=== PATIENT | female | born 1985 | race Caucasian/White ===

== ENCOUNTER → 2022-01-13 18:01 | Outpatient (CLI) | payer BC, SELFPAY ==
--- NOTE | 2022-01-13 18:02 | DI.RAD.S_ITS ---
PROCEDURE: XR WRIST RT MIN 3V INDICATIONS: painful and swollen TECHNIQUE: Four views of the wrist were acquired. COMPARISON: None. FINDINGS: Bones: No fractures or dislocations. No suspicious bony lesions. Scaphoid view: Scaphoid is intact. Soft tissues: No suspicious soft tissue calcifications. IMPRESSION: Normal exam. Dictated by: Lexx Bettencourt M.D. on 01/13/2022 at 18:28 Approved by: Lexx Bettencourt M.D. on 01/13/2022 at 18:29
== END ==
PROVIDERS: Referring Provider Nurse Practitioner Family; Visit Provider Nurse Practitioner Family
DX: M25.531 Pain in right wrist (principal)
CPT/HCPCS: 73110

== ENCOUNTER → 2022-03-20 11:15 | Outpatient (CLI) | payer BC, SELFPAY | PROVIDERS: Visit Provider Nurse Practitioner Family | DX: R10.9 Unspecified abdominal pain (principal) | CPT/HCPCS: 87086 ==

== ENCOUNTER → 2022-03-24 08:15 | Outpatient (CLI) | payer BC, SELFPAY ==
--- NOTE | 2022-03-24 08:16 | DI.US.S_ITS ---
PROCEDURE: US ABDOMEN LIMITED INDICATIONS: RIGHT UPPER QUADRANT PAIN TECHNIQUE: Real-time focused scanning was performed of the abdomen, with image documentation. COMPARISON: None. FINDINGS: The liver measures 14.8 cm with overall normal echotexture. Cholecystectomy. CBD measures up to 7 mm, within normal limits post cholecystectomy. Head and body of the pancreas were visualized and within normal limits. No pathologic free fluid in the upper abdomen. IMPRESSION: Status post cholecystectomy, prominent CBD measures within normal limits in the absence of the gallbladder. Overall unremarkable sonographic appearance of the liver. Dictated by: Gilbert Jerez M.D. on 03/24/2022 at 9:03 Approved by: Gilbert Jerez M.D. on 03/24/2022 at 9:05
== END ==
PROVIDERS: Referring Provider Nurse Practitioner Family; Visit Provider Nurse Practitioner Family
DX: R10.11 Right upper quadrant pain (principal); Z90.49 Acquired absence of other specified parts of digestive tract
CPT/HCPCS: 76705

== ENCOUNTER → 2022-04-29 16:27 | Outpatient (CLI) | payer BC, SELFPAY ==
[2022-04-29 17:45] LABS: Add Manual Diff / Slide Review NO; Basophils Absolute Auto 0 /uL (0-100); Basophils Percent Auto 0.3 % (0-2); Eosinophils Absolute Auto 100 /uL (0-450); Eosinophils Percent Auto 1.4 % (2-4); Hematocrit 34.3 % (36-46); Lymphocytes Absolute Auto 2000 /uL (1100-4500); Lymphocytes Percent Auto 37.2 % (25-40); Mean Corpuscular HGB Conc 35.1 % (30-36); Mean Corpuscular Hemoglobin 31.7 PG (26-34); Mean Corpuscular Volume 90.1 fL (80-100); Monocytes Absolute Auto 500 /uL (0-900); Monocytes Percent Auto 8.7 % (3-14); Neutrophils Absolute Auto 2800 /uL (1500-7000); Neutrophils Percent Auto 52.4 % (50-75); Platelet Count 302 X10^3/uL (150-400); Red Cell Distribution Width 12.1 % (11.6-14.8); White Blood Cell Count 5.3 X10^3/uL (4.5-11.0)
[2022-04-29 17:49] LABS: Appearance Urine UA CLEAR; Bilirubin Urine UA NEGATIVE (NEGATIVE); Color Urine UA YELLOW; Glucose Urine UA NEGATIVE (Negative); Ketones Urine UA NEGATIVE (NEGATIVE); Leukocyte Esterase Urine UA 2+ (NEGATIVE); Nitrite Urine UA NEGATIVE (Negative); Occult Blood Urine UA NEGATIVE (Negative); Protein Urine UA NEGATIVE (Negative); Urobilinogen Urine UA 0.2 E.U./dL (0.2)
[2022-04-29 17:58] LABS: pH Urine UA 7.5 (4.5-8.0)
[2022-04-29 18:02] LABS: Alanine Aminotransferase 18 IU/L (<35); Albumin 4.3 g/dL (3.5-5.0); Albumin Globulin Ratio 1.4 (1.0-2.8); Alkaline Phosphatase 58 U/L (38-126); Aspartate Aminotransferase 25 IU/L (14-36); BUN Creatinine Ratio 21.7 (6-22); Bilirubin Total 0.3 mg/dL (0.2-1.3); Blood Urea Nitrogen 18 mg/dL (7-17); Calcium 9.1 mg/dL (8.4-10.2); Carbon Dioxide 29 mmol/L (22-32); Chloride 103 mmol/L (98-107); Cholesterol 166 mg/dL (140-199); Estimated Glomerular Filt Rate > 60 mL/min (>60); Glucose 90 mg/dL (70-100); HDL Cholesterol 37 mg/dL (40-60); HEMOLYSIS < 15 (0-50); LDL Cholesterol Calculated 106 mg/dL (<100); Sodium 140 mmol/L (137-145); Total Protein 7.3 g/dL (6.3-8.2); Triglycerides 116 mg/dL (35-150)
[2022-04-29 18:03] LABS: Bacteria Urine Occasional (0-1); Culture Indicated Urine Specimen Cultured; RBC Urine 0-1/HPF (0-5/HPF); Squamous Epithelial Cell Urine 1-5 /HPF (0-5/HPF); Trichomonas Urine 1-5/HPF (None Seen); WBC Urine 5-10/HPF (0-5/HPF)
[2022-04-29 18:31] LABS: TSH w/ Reflex to FT4 1.49 uIU/mL (0.47-4.68)
== END ==
PROVIDERS: PCP Pediatrics; Referring Provider Pediatrics; Visit Provider Pediatrics
DX: Z13.9 Encounter for screening, unspecified (principal)
CPT/HCPCS: 36415; 80053; 80061; 81003; 81015; 84443; 85025; 87086

== ENCOUNTER 2022-10-09 10:30 | Outpatient (RCR) | payer BC, SELFPAY ==
--- NOTE | 2022-08-12 15:15 | PT.OIE ---
Current Diagnoses Low back pain, unspecified (08/12/22) Other specified disorders of muscle (08/12/22) Stress incontinence (female) (male) (08/12/22) Past Medical History (Last Reviewed 07/17/22 @ 13:35 by Angel Red MD) ADHD Allergies Anemia (~1999) Asthma Chicken pox (~1987) Chronic back pain Chronic insomnia Eczema (~2019) Fatigue Fractures History of COVID-19 Ovarian cyst (~2003) Past Surgical History (Last Reviewed 07/17/22 @ 13:35 by Angel Red MD) Anesthesia H/O left knee surgery (~2007) H/O left wrist surgery (~2004) History of ankle surgery (~1995) History of cholecystectomy (~2011) History of shoulder surgery (~2015) History of tonsillectomy (~1988) Vocal cord polyp (~2003) Visit Care Team Role Provider Type Az Wagner MD Attending Provider Physician Family Provider Primary Care Provider Referring Provider Specialty: Internal Medicine Pediatrics Address: [address] [place] [address], [facility] Phone: Fax: Email: [email or web address] Physical Therapy Initial Evaluation PT-OP-A Visit Information Start: 08/12/22 12:13 Freq: Status: Active Protocol: Document 08/12/22 14:30 [facility] (Rec: 08/12/22 18:27 [facility] [id number]) Out-Patient Physical Therapy Visit Information Visit Information Visit Type Initial Evaluation Visit Start Time 14:30 Visit Stop Time 15:15 Total Visit Minutes 45 Visit Number 1 Evaluation Information Evaluation Date 08/12/22 PT-OP-B Current Condition Start: 08/12/22 12:13 Freq: Status: Active Protocol: Document 08/12/22 14:30 [facility] (Rec: 08/12/22 15:04 [facility] [id number]) Current Condition History of Current Condition Onset Date following her and delivery 3 years ago Current Complaints pelvic floor weakness, coccyx pain and pain across the lower back and SI History of Current Condition History of vaginal delivery 3 years and she began having tailbone pain afterwards and it never went away. SHe did have strain counter strain and fascial release and this did hep some. Pain is not constant but more if she is in a seated position or sitting in a soft space. She is hypermobile and has had more issues with her SI. Her pain is sharp and intense and then goes away. SHe doesn't feel like she has as much control as she used to . Treatment Goals Patient/Caregiver Goals pts goals are to include core strength and stability of the pelvic floor, reduce pain in the tailbone region and low back Prior Functional Status Baseline Function- ADL's Independent Baseline Function- Mobility Independent Baseline Function- Other prior to and delivery pt noted no c/o pain or pelvic floor weakness Current Functional Impairments (Reported) Functional Limitations- Recreation/ tailbone pain can limit Hobbies activities Functional Limitations- Other pt experiences urinary leakage with cough or sneeze PT-OP-C Subjective Start: 08/12/22 12:13 Freq: Status: Active Protocol: Document 08/12/22 14:30 [facility] (Rec: 08/13/22 13:44 [facility] [id number]) OP-PT Pain Assessment Pain Assessment Grid Paper Pain Assessment Grid Completed Yes Location low back and SI joints B Intensity 4 Scale Used Numeric (0 - 10) Description- Other pain ranges from 1-4 Frequency Frequent coccyx bone Pain Location Details coccyx bone Intensity 5 Scale Used Numeric (0 - 10) Description Sharp,Stabbing Description- Other pain ranges 0-5 Frequency Intermittent PT-OP-F Manual Assessment Start: 08/12/22 12:13 Freq: Status: Active Protocol: Document 08/12/22 14:30 [facility] (Rec: 08/13/22 13:44 [facility] [id number]) Manual Assessments Soft Tissue Assessment Soft Tissue Mobility Assessment tightness of the lumbar parapsinals and pelvis is held in a anterior pelvic tilt hamstring tightness bilaterally left side quad and hip flexor tightness, with prone knee flexion pt has a increase in lumbar extension with prone quad stretch and experiences increase LBP Joint Mobility Assessment Joint Mobility Assessment + ASLR test on the left for SI instability PT-OP-I Pelvic Floor Start: 08/13/22 13:44 Freq: Status: Active Protocol: Document 08/12/22 14:30 [facility] (Rec: 08/13/22 13:47 [facility] [id number]) Pelvic Floor Assessment Urine Pelvic Floor Surgery No Urinary Symptoms Urge Sensation Leakage Size Small Leakage Cause Cough,Exercise,Urge Pelvic Clock Pelvic Clock 12-3 Atrophy Pelvic Clock 3-6 Guarding,Tenderness Pelvic Clock 6-9 Guarding,Tenderness Pelvic Clock 9-12 Guarding,Tenderness Contraction Ability Voluntary Contraction Moderate Voluntary Relaxation Moderate Manual Muscle Testing Left 3 Manual Muscle Testing Right 3 Manual Muscle Testing Anterior 3 Manual Muscle Testing Posterior 3 Muscle Endurance (Seconds) 4 Comments Pelvic Floor Comments Durga is in a guarded state with her pelvic floor muscles, she has difficulty zane as well as relaxing her pelvic floor due to her pelvic floor muscles being guarded and in spasm PT-OP-J Posture/Palpation/Skin Start: 08/12/22 12:13 Freq: Status: Active Protocol: Document 08/12/22 14:30 [facility] (Rec: 08/13/22 13:44 [facility] [id number]) Posture Evaluation Comments Posture Comments pt stands in a anterior pelvic tilt with shortening of the lumbar paraspinal muscles PT-OP-K Range of Motion Start: 08/12/22 12:13 Freq: Status: Active Protocol: Document 08/12/22 14:30 [facility] (Rec: 08/13/22 13:49 [facility] [id number]) Lumbar Spine Range of Motion Lumbar Spine Active Testing Position quadruped Flexion 40 ROM Limitations Soft Tissue Tightness,Pain Comments pt has very limited lumbar flexion as her spine is held into extension and her paraspinal muscles are guarded and tight PT-OP-M Strength Start: 08/12/22 12:13 Freq: Status: Active Protocol: Document 08/12/22 14:30 [facility] (Rec: 08/13/22 13:49 [facility] [id number]) Trunk Strength Trunk Manual Muscle Testing Testing Position Supine Flexion 3 Fair Core Stabilization poor TA activation without upper abdominal substitution PT-OP-Q Treatments Start: 08/12/22 12:13 Freq: Status: Active Protocol: Document 08/12/22 14:30 [facility] (Rec: 08/13/22 13:50 [facility] [id number]) Therapeutic Exercises Other Exercises iliopsoas stretch in riri test position Side bilateral Reps/Minutes hold 1-2 min Comments left side is significantly tighter than the right tyson pose Reps/Minutes hold 1-2 min quadruped cat cow Reps/Minutes x 20 reps quadruped TA Reps/Minutes x 10 reps holding up to 10 second holds PT-OP-T Assessment and Plan Start: 08/12/22 12:13 Freq: Status: Active Protocol: Document 08/12/22 14:30 [facility] (Rec: 08/13/22 13:44 [facility] [id number]) Physical Therapy Assessment Rehab Potential Rehabilitation Potential Excellent Evaluation Complexity Number of Personal Factors/Comorbidities 0 Number of Body Systems Impaired 1-2 Clinical Presentation at Evaluation Stable Impairments Impairments Activity Tolerance,Functional Mobility,Pain,Posture,ROM,Soft Tissue Mobility,Strength,Tone Other Impairments urinary incontinence Goals 4 Impairment decreased lumbar spine flexion with lumbar paraspinal guarding and tightness Short Term Goal (STG) Durga is educated on a home exercise program to release the guarded and tight lumbar paraspinals and improve lumbar ROM into flexion helping to reduce LBP STG Duration 6 weeks 3 Impairment poor strength and endurance of the pelvic floor Short Term Goal (STG) Durga is able to sustain a pelvic floor contraction in supine x 5 seconds with good relaxation following STG Duration 6 weeks [employer] Goal (LTG) Durga is able to sustain a pelvic floor contraction in supine x 10 seconds with full relaxation following LTG Duration 12 weeks 2 Impairment pelvic floor guarding and tightness, inability to voluntarily relax the levator ani Air[employer] Goal (LTG) Durga is able to relax her pelvic floor to baseline on EMG biofeedback LTG Duration 12 weeks 1 Impairment low back pain rated 1-4/10 and coccyx pain rated 0-5/10 Retirement Goal (LTG) Durga reports a overall reduction in pain levels with both her coccyx bone as well as her low back LTG Duration 12 weeks Assessment Summary Assessment Durga is a 37 year old female referred to PT with pelvic floor weakness and coccyx/low back pain. Durga reports her pain began approximately 3 years ago following her and delivery. She reports feeling weak in her pelvic floor and doesn't feel she has as much support as she did pre . She reports urinary leakage with strong cough or sneeze. The tailbone pain she experiences is intermittent but can be very sharp. She has low back pain that is more constant in nature and is described as 1-4 /10 on the pain scale. With evaluation today Durga is restricted in lumbar spine ROM into flexion and presents with guarding and muscle spasm of her paraspinals. Her pelvis is in a anteriorly rotated position at rest and it is not comfortable for her to lay flat in supine because of this. She is tight in her hip flexors bilaterally with the left side much more so than the right. There is a + ASLR test on the left with unlocking of the SI joint She is weak in her core musculature. With pelvic floor assessment she is guarded and tight in her levator ani on the lateral payne as well as the posterior wall. She has difficulty relaxing her pelvic floor on her own. She is a good candidate for EMG biofeedback with a emphasis on down training for the pelvic floor first and then building the strength back up. Her guarding in her levator ani is most likely contributing to her tailbone pain. I started gentle abdominal bracing exercises with her today and then she was shown stretches for her low back to emphasize flexion and to release her tight hip flexors. She is a good candidate for PT Physical Therapy Plan Frequency and Duration Frequency of Treatment 2x/Week Duration of treatment (weeks) 12 Plan of Care Start Date 08/12/22 Plan of Care End Date 11/04/22 Therapeutic Interventions Therapeutic Interventions Home Exercise Program, Neuromuscular Re-education, Patient/Caregiver Education, Self-Care/Home Management,Soft Tissue Mobilization, Therapeutic Exercises Modalities Biofeedback,Electric Stimulation Next Visit Focus/Plan Next Note Type Treatment Note Next Visit Plan Begin EMG biofeedback for neuromuscular awareness of the levator ani, begin MFR release techniques for the coccygeus to help reduce muscle tone and assist with coccyx pain.
--- NOTE | 2022-08-26 18:23 | PT.OTN ---
Current Diagnoses Low back pain, unspecified (08/26/22) Other specified disorders of muscle (08/26/22) Stress incontinence (female) (male) (08/26/22) Physical Therapy Treatment Note PT-OP-A Visit Information Start: 08/12/22 12:13 Freq: Status: Active Protocol: Document 08/26/22 14:30 [facility] (Rec: 08/26/22 15:19 [facility] [id number]) Out-Patient Physical Therapy Visit Information Visit Information Visit Type Treatment Note Visit Start Time 14:30 Visit Stop Time 15:15 Total Visit Minutes 45 Visit Number 2 PT-OP-B Current Condition Start: 08/12/22 12:13 Freq: Status: Active Protocol: Document 08/12/22 14:30 [facility] (Rec: 08/12/22 15:04 [facility] [id number]) Current Condition History of Current Condition Onset Date following her and delivery 3 years ago Current Complaints pelvic floor weakness, coccyx pain and pain across the lower back and SI History of Current Condition History of vaginal delivery 3 years and she began having tailbone pain afterwards and it never went away. SHe did have strain counter strain and fascial relase and this did hep some. Pain is not constant but more if she is in a seated position or sitting in a soft space. She is hypermoblie and has had more issues with her SI. Her pain is sharp and intense and then goes away. SHe doesn't feel like she has as much contral as she used to . Treatment Goals Patient/Caregiver Goals pts goals are to include core strength and stability of the pelvic floor, reduce pain in the tailbone region and low back Prior Functional Status Baseline Function- ADL's Independent Baseline Function- Mobility Independent Baseline Function- Other prior to and delivery pt noted no c/o pain or pelvic floor weakness Current Functional Impairments (Reported) Functional Limitations- Recreation/ tailbone pain can limit Hobbies activities Functional Limitations- Other pt experiences urinary leakage with cough or sneeze PT-OP-C Subjective Start: 08/12/22 12:13 Freq: Status: Active Protocol: Document 08/26/22 14:30 [facility] (Rec: 08/26/22 15:19 [facility] [id number]) OP-PT Subjective Patient Comments Patient Comments pt notes if she stretches and then uses the miracle ball and then stretches again she does better with activating her pelvic floor, she had a strain counter strain appot last week and since then she hasn't noticed as much of her tailbone pain. Patient Reported Progress Improving PT-OP-F Manual Assessment Start: 08/12/22 12:13 Freq: Status: Active Protocol: Document 08/12/22 14:30 [facility] (Rec: 08/13/22 13:44 [facility] [id number]) Manual Assessments Soft Tissue Assessment Soft Tissue Mobility Assessment tightness of the lumbar parapsinals and pelvis is held in a anterior pelvic tilt hamstring tightness bilaterally left side quad and hip flexor tightness, with prone knee flexion pt has a increase in lumbar extension with prone quad stretch and experiences increase LBP Joint Mobility Assessment Joint Mobility Assessment + ASLR test on the left for SI instability PT-OP-I Pelvic Floor Start: 08/13/22 13:44 Freq: Status: Active Protocol: Document 08/12/22 14:30 [facility] (Rec: 08/13/22 13:47 [facility] [id number]) Pelvic Floor Assessment Urine Pelvic Floor Surgery No Urinary Symptoms Urge Sensation Leakage Size Small Leakage Cause Cough,Exercise,Urge Pelvic Clock Pelvic Clock 12-3 Atrophy Pelvic Clock 3-6 Guarding,Tenderness Pelvic Clock 6-9 Guarding,Tenderness Pelvic Clock 9-12 Guarding,Tenderness Contraction Ability Voluntary Contraction Moderate Voluntary Relaxation Moderate Manual Muscle Testing Left 3 Manual Muscle Testing Right 3 Manual Muscle Testing Anterior 3 Manual Muscle Testing Posterior 3 Muscle Endurance (Seconds) 4 Comments Pelvic Floor Comments Durga is in a guarded state with her pelvic floor muscles, she has difficulty zane as well as relaxing her pelvic floor due to her pelvic floor muscles being guarded and in spasm PT-OP-J Posture/Palpation/Skin Start: 08/12/22 12:13 Freq: Status: Active Protocol: Document 08/12/22 14:30 [facility] (Rec: 08/13/22 13:44 [facility] [id number]) Posture Evaluation Comments Posture Comments pt stands in a anterior pelvic tilt with shortening of the lumbar paraspinal muscles PT-OP-K Range of Motion Start: 08/12/22 12:13 Freq: Status: Active Protocol: Document 08/12/22 14:30 [facility] (Rec: 08/13/22 13:49 [facility] [id number]) Lumbar Spine Range of Motion Lumbar Spine Active Testing Position quadruped Flexion 40 ROM Limitations Soft Tissue Tightness,Pain Comments pt has very limited lumbar flexion as her spine is held into extension and her paraspinal muscles are guarded and tight PT-OP-M Strength Start: 08/12/22 12:13 Freq: Status: Active Protocol: Document 08/12/22 14:30 [facility] (Rec: 08/13/22 13:49 [facility] [id number]) Trunk Strength Trunk Manual Muscle Testing Testing Position Supine Flexion 3 Fair Core Stabilization poor TA activation without upper abdominal substitution PT-OP-Q Treatments Start: 08/12/22 12:13 Freq: Status: Active Protocol: Document 08/26/22 14:30 [facility] (Rec: 08/26/22 15:19 [facility] [id number]) Therapeutic Exercises Supine Exercises EMG biofeedback for pelvic floor muscle control Reps/Minutes x 10 sec on and 10 sec off Comments 5.9 and 10.5 Other Exercises tyson pose Reps/Minutes hold 1-2 min Comments pt to try pelvic floor contractions in this position quadruped TA Reps/Minutes x 10 reps holding up to 10 second holds Neuro Re-Education Treatment Other Activities EMG biofeedback Comments EMG biofeedback for the pelvic floor, relaxed awareness of the pelvic floor, trial both with legs elevated as well as bent to help relax her back PT-OP-T Assessment and Plan Start: 08/12/22 12:13 Freq: Status: Active Protocol: Document 08/26/22 14:30 [facility] (Rec: 08/26/22 18:22 [facility] [id number]) Physical Therapy Assessment Assessment Summary Assessment Durga tolerated todays tx well. She could tell at the end her pelvci floor muscles were shakey. Endurance is difficulty to hold and stability of rest is shakey. We will progress slowly with emphasis on relaxed awareness of the pelvic floor as well as strengthening, miracle balls working well for her Physical Therapy Plan Frequency and Duration Frequency of Treatment 2x/Week Duration of treatment (weeks) 12 Plan of Care Start Date 08/12/22 Plan of Care End Date 11/04/22 Therapeutic Interventions Therapeutic Interventions Home Exercise Program, Neuromuscular Re-education, Patient/Caregiver Education, Self-Care/Home Management,Soft Tissue Mobilization, Therapeutic Exercises Modalities Biofeedback,Electric Stimulation Next Visit Focus/Plan Next Note Type Treatment Note Next Visit Plan Continue EMG biofeedback for neuromuscular awareness of the levator ani, begin MFR release techniques for the coccygeus, review stretches for the pelvic floor
--- NOTE | 2022-09-02 16:30 | PT.OTN ---
Current Diagnoses Low back pain, unspecified (09/02/22) Other specified disorders of muscle (09/02/22) Stress incontinence (female) (male) (09/02/22) Physical Therapy Treatment Note PT-OP-A Visit Information Start: 08/12/22 12:13 Freq: Status: Active Protocol: Document 09/02/22 14:30 [facility] (Rec: 09/02/22 16:24 [facility] [id number]) Out-Patient Physical Therapy Visit Information Visit Information Visit Type Treatment Note Visit Start Time 14:40 Visit Stop Time 15:25 Total Visit Minutes 45 Visit Number 3 PT-OP-B Current Condition Start: 08/12/22 12:13 Freq: Status: Active Protocol: Document 08/12/22 14:30 [facility] (Rec: 08/12/22 15:04 [facility] [id number]) Current Condition History of Current Condition Onset Date following her and delivery 3 years ago Current Complaints pelvic floor weakness, coccyx pain and pain across the lower back and SI History of Current Condition History of vaginal delivery 3 years and she began having tailbone pain afterwards and it never went away. SHe did have strain counter strain and fascial relase and this did hep some. Pain is not constant but more if she is in a seated position or sitting in a soft space. She is hypermoblie and has had more issues with her SI. Her pain is sharp and intense and then goes away. SHe doesn't feel like she has as much contral as she used to . Treatment Goals Patient/Caregiver Goals pts goals are to include core strength and stability of the pelvic floor, reduce pain in the tailbone region and low back Prior Functional Status Baseline Function- ADL's Independent Baseline Function- Mobility Independent Baseline Function- Other prior to and delivery pt noted no c/o pain or pelvic floor weakness Current Functional Impairments (Reported) Functional Limitations- Recreation/ tailbone pain can limit Hobbies activities Functional Limitations- Other pt experiences urinary leakage with cough or sneeze PT-OP-C Subjective Start: 08/12/22 12:13 Freq: Status: Active Protocol: Document 09/02/22 14:30 [facility] (Rec: 09/02/22 15:29 [facility] [id number]) OP-PT Subjective Patient Comments Patient Comments pt notes the tightness is starting to come back but it lasted x two weeks after her last appointment. She did have a vaginal ultrasound yesterday and today feels as if it is difficult for her to recruit her pelvic floor muscles PT-OP-F Manual Assessment Start: 08/12/22 12:13 Freq: Status: Active Protocol: Document 08/12/22 14:30 [facility] (Rec: 08/13/22 13:44 [facility] [id number]) Manual Assessments Soft Tissue Assessment Soft Tissue Mobility Assessment tightness of the lumbar parapsinals and pelvis is held in a anterior pelvic tilt hamstring tightness bilaterally left side quad and hip flexor tightness, with prone knee flexion pt has a increase in lumbar extension with prone quad stretch and experiences increase LBP Joint Mobility Assessment Joint Mobility Assessment + ASLR test on the left for SI instability PT-OP-I Pelvic Floor Start: 08/13/22 13:44 Freq: Status: Active Protocol: Document 08/12/22 14:30 [facility] (Rec: 08/13/22 13:47 [facility] [id number]) Pelvic Floor Assessment Urine Pelvic Floor Surgery No Urinary Symptoms Urge Sensation Leakage Size Small Leakage Cause Cough,Exercise,Urge Pelvic Clock Pelvic Clock 12-3 Atrophy Pelvic Clock 3-6 Guarding,Tenderness Pelvic Clock 6-9 Guarding,Tenderness Pelvic Clock 9-12 Guarding,Tenderness Contraction Ability Voluntary Contraction Moderate Voluntary Relaxation Moderate Manual Muscle Testing Left 3 Manual Muscle Testing Right 3 Manual Muscle Testing Anterior 3 Manual Muscle Testing Posterior 3 Muscle Endurance (Seconds) 4 Comments Pelvic Floor Comments Durga is in a guarded state with her pelvic floor muscles, she has difficulty zane as well as relaxing her pelvic floor due to her pelvic floor muscles being guarded and in spasm PT-OP-J Posture/Palpation/Skin Start: 08/12/22 12:13 Freq: Status: Active Protocol: Document 08/12/22 14:30 [facility] (Rec: 08/13/22 13:44 [facility] [id number]) Posture Evaluation Comments Posture Comments pt stands in a anterior pelvic tilt with shortening of the lumbar paraspinal muscles PT-OP-K Range of Motion Start: 08/12/22 12:13 Freq: Status: Active Protocol: Document 08/12/22 14:30 [facility] (Rec: 08/13/22 13:49 [facility] [id number]) Lumbar Spine Range of Motion Lumbar Spine Active Testing Position quadruped Flexion 40 ROM Limitations Soft Tissue Tightness,Pain Comments pt has very limited lumbar flexion as her spine is held into extension and her paraspinal muscles are guarded and tight PT-OP-M Strength Start: 08/12/22 12:13 Freq: Status: Active Protocol: Document 08/12/22 14:30 [facility] (Rec: 08/13/22 13:49 [facility] [id number]) Trunk Strength Trunk Manual Muscle Testing Testing Position Supine Flexion 3 Fair Core Stabilization poor TA activation without upper abdominal substitution PT-OP-Q Treatments Start: 08/12/22 12:13 Freq: Status: Active Protocol: Document 09/02/22 14:30 [facility] (Rec: 09/02/22 15:29 [facility] [id number]) Therapeutic Exercises Supine Exercises supine pelvic floor squeeze with adductor support Reps/Minutes HEP working on anterior pelvic floor recruitment EMG biofeedback for pelvic floor muscle control Reps/Minutes x 10 sec on and 10 sec off Comments 3.1 6.9 Other Exercises seated iliopsoas stretch Reps/Minutes pt shown how to do her iliopsoas stretch in a seated position with a chair Comments hold 1-2 min with core engaged to avoid lumbar extension tyson pose Reps/Minutes hold 1-2 min Comments pt to try pelvic floor contractions in this position quadruped cat cow Reps/Minutes x 20 reps Manual Therapy Treatment Soft Tissue Mobilization piriformis B Mobilization Type Myofascial Release Intensity/Depth Moderate Body Position Prone Comments pt was prone over the body pillow for piriformis release B Manual Techniques manual prone quad stretch Reps/Duration hold 1 min x 2 sacral mobilization into counter nutation Body Position Prone Comments mobilizations of the sacrum into counter nutation Neuro Re-Education Treatment Other Activities EMG biofeedback Comments EMG biofeedback for the pelvic floor, pt presented with improved resting tone of her pelvic floor muscles today, she was able to work on contract relax without a increase in resting tone PT-OP-T Assessment and Plan Start: 08/12/22 12:13 Freq: Status: Active Protocol: Document 09/02/22 14:30 [facility] (Rec: 09/02/22 16:23 [facility] [id number]) Physical Therapy Assessment Assessment Summary Assessment Durga did have a better resting tone today after Myofascial work was performed over the gluteal region prior to exercise. We also worked on her stretches first which also helped to relax her pelvic floor prior to exercise . She did have a better resting tone today. She did have more difficulty with pelvic floor recruitment and this may have been a result of being one day after the vaginal ultrasound. Will continue working towards improved strength. Durga may benefit from use of the NMES for improved pelvic floor recruitment Physical Therapy Plan Frequency and Duration Frequency of Treatment 2x/Week Duration of treatment (weeks) 12 Plan of Care Start Date 08/12/22 Plan of Care End Date 11/04/22 Therapeutic Interventions Therapeutic Interventions Home Exercise Program, Neuromuscular Re-education, Patient/Caregiver Education, Self-Care/Home Management,Soft Tissue Mobilization, Therapeutic Exercises Modalities Biofeedback,Electric Stimulation Next Visit Focus/Plan Next Note Type Treatment Note Next Visit Plan start NMES for the pelvic floor next visit
--- NOTE | 2022-09-16 16:39 | PT.OTN ---
Current Diagnoses Low back pain, unspecified (09/16/22) Other specified disorders of muscle (09/16/22) Stress incontinence (female) (male) (09/16/22) Physical Therapy Treatment Note PT-OP-A Visit Information Start: 08/12/22 12:13 Freq: Status: Active Protocol: Document 09/16/22 14:38 [facility] (Rec: 09/16/22 16:27 [facility] [id number]) Out-Patient Physical Therapy Visit Information Visit Information Visit Type Treatment Note Visit Start Time 14:35 Visit Stop Time 15:20 Total Visit Minutes 45 Visit Number 4 Evaluation Information Evaluation Date 08/12/22 PT-OP-B Current Condition Start: 08/12/22 12:13 Freq: Status: Active Protocol: Document 08/12/22 14:30 [facility] (Rec: 08/12/22 15:04 [facility] [id number]) Current Condition History of Current Condition Onset Date following her and delivery 3 years ago Current Complaints pelvic floor weakness, coccyx pain and pain across the lower back and SI History of Current Condition History of vaginal delivery 3 years and she began having tailbone pain afterwards and it never went away. SHe did have strain counter strain and fascial relase and this did hep some. Pain is not constant but more if she is in a seated position or sitting in a soft space. She is hypermoblie and has had more issues with her SI. Her pain is sharp and intense and then goes away. SHe doesn't feel like she has as much contral as she used to . Treatment Goals Patient/Caregiver Goals pts goals are to include core strength and stability of the pelvic floor, reduce pain in the tailbone region and low back Prior Functional Status Baseline Function- ADL's Independent Baseline Function- Mobility Independent Baseline Function- Other prior to and delivery pt noted no c/o pain or pelvic floor weakness Current Functional Impairments (Reported) Functional Limitations- Recreation/ tailbone pain can limit Hobbies activities Functional Limitations- Other pt experiences urinary leakage with cough or sneeze PT-OP-C Subjective Start: 08/12/22 12:13 Freq: Status: Active Protocol: Document 09/16/22 14:38 [facility] (Rec: 09/16/22 15:15 [facility] [id number]) OP-PT Subjective Patient Comments Patient Comments pt notes the manual work last visit really helped, the tailbone pain has come back off and on She has been trying to use her miracle balls and is doing cat cows to calm it down. She notes it is still difficult to feel her pelvic floor. PT-OP-F Manual Assessment Start: 08/12/22 12:13 Freq: Status: Active Protocol: Document 08/12/22 14:30 [facility] (Rec: 08/13/22 13:44 [facility] [id number]) Manual Assessments Soft Tissue Assessment Soft Tissue Mobility Assessment tightness of the lumbar parapsinals and pelvis is held in a anterior pelvic tilt hamstring tightness bilaterally left side quad and hip flexor tightness, with prone knee flexion pt has a increase in lumbar extension with prone quad stretch and experiences increase LBP Joint Mobility Assessment Joint Mobility Assessment + ASLR test on the left for SI instability PT-OP-I Pelvic Floor Start: 08/13/22 13:44 Freq: Status: Active Protocol: Document 08/12/22 14:30 [facility] (Rec: 08/13/22 13:47 [facility] [id number]) Pelvic Floor Assessment Urine Pelvic Floor Surgery No Urinary Symptoms Urge Sensation Leakage Size Small Leakage Cause Cough,Exercise,Urge Pelvic Clock Pelvic Clock 12-3 Atrophy Pelvic Clock 3-6 Guarding,Tenderness Pelvic Clock 6-9 Guarding,Tenderness Pelvic Clock 9-12 Guarding,Tenderness Contraction Ability Voluntary Contraction Moderate Voluntary Relaxation Moderate Manual Muscle Testing Left 3 Manual Muscle Testing Right 3 Manual Muscle Testing Anterior 3 Manual Muscle Testing Posterior 3 Muscle Endurance (Seconds) 4 Comments Pelvic Floor Comments Durga is in a guarded state with her pelvic floor muscles, she has difficulty zane as well as relaxing her pelvic floor due to her pelvic floor muscles being guarded and in spasm PT-OP-J Posture/Palpation/Skin Start: 08/12/22 12:13 Freq: Status: Active Protocol: Document 08/12/22 14:30 [facility] (Rec: 08/13/22 13:44 [facility] [id number]) Posture Evaluation Comments Posture Comments pt stands in a anterior pelvic tilt with shortening of the lumbar paraspinal muscles PT-OP-K Range of Motion Start: 08/12/22 12:13 Freq: Status: Active Protocol: Document 08/12/22 14:30 [facility] (Rec: 08/13/22 13:49 [facility] [id number]) Lumbar Spine Range of Motion Lumbar Spine Active Testing Position quadruped Flexion 40 ROM Limitations Soft Tissue Tightness,Pain Comments pt has very limited lumbar flexion as her spine is held into extension and her paraspinal muscles are guarded and tight PT-OP-M Strength Start: 08/12/22 12:13 Freq: Status: Active Protocol: Document 08/12/22 14:30 [facility] (Rec: 08/13/22 13:49 [facility] [id number]) Trunk Strength Trunk Manual Muscle Testing Testing Position Supine Flexion 3 Fair Core Stabilization poor TA activation without upper abdominal substitution PT-OP-Q Treatments Start: 08/12/22 12:13 Freq: Status: Active Protocol: Document 09/16/22 14:38 [facility] (Rec: 09/16/22 15:15 [facility] [id number]) Therapeutic Exercises Supine Exercises happy baby Reps/Minutes hold 1-2 minutes supine pelvic floor squeeze with adductor support Reps/Minutes HEP working on anterior pelvic floor recruitment Comments worked on hip IR to avoid arching of the low back Other Exercises 1/2 kneeling hip flexor stretch Reps/Minutes hold 1-2 min Comments right side tighter than the left tyson pose Reps/Minutes hold 1-2 min Comments pt to try pelvic floor contractions in this position Manual Therapy Treatment Soft Tissue Mobilization piriformis B Mobilization Type Myofascial Release Intensity/Depth Moderate Body Position Prone Comments pt was prone over the body pillow for piriformis release B Manual Techniques manual prone quad stretch Reps/Duration hold 1 min x 2 sacral mobilization into counter nutation Body Position Prone Comments mobilizations of the sacrum into counter nutation Neuro Re-Education Treatment Other Activities NMES for the pelvic floor Comments pt can feel the stim in the left front region the most. PT-OP-T Assessment and Plan Start: 08/12/22 12:13 Freq: Status: Active Protocol: Document 09/16/22 14:38 [facility] (Rec: 09/16/22 15:15 [facility] [id number]) Physical Therapy Assessment Goals 4 Impairment decreased lumbar spine flexion with lumbar paraspinal guarding and tightness Short Term Goal (STG) Durga is educated on a home exercise program to release the guarded and tight lumbar paraspinals and improve lumbar ROM into flexion helping to reduce LBP STG Duration 6 weeks 3 Impairment poor strength and endurance of the pelvic floor Short Term Goal (STG) Durga is able to sustain a pelvic floor contraction in supine x 5 seconds with good relaxation following STG Duration 6 weeks Shelter Goal (LTG) Durga is able to sustain a pelvic floor contraction in supine x 10 seconds with full relaxation following LTG Duration 12 weeks 2 Impairment pelvic floor guarding and tightness, inability to voluntarily relax the levator ani Director Facilities Maintenance Goal (LTG) Durga is able to relax her pelvic floor to baseline on EMG biofeedback LTG Duration 12 weeks 1 Impairment low back pain rated 1-4/10 and coccyx pain rated 0-5/10 Director Facilities Maintenance Goal (LTG) Durga reports a overall reduction in pain levels with both her coccyx bone as well as her low back LTG Duration 12 weeks Assessment Summary Assessment Pt was able to tolerate the NMES, she could feel the NMES more on the left side, she was able to feel a small amount on her right but feels more of a disconnect on the right. Will continue using the NMES to help with pts sensation especially on the right side. Physical Therapy Plan Frequency and Duration Frequency of Treatment 2x/Week Duration of treatment (weeks) 12 Plan of Care Start Date 08/12/22 Plan of Care End Date 11/04/22 Therapeutic Interventions Therapeutic Interventions Home Exercise Program, Neuromuscular Re-education, Patient/Caregiver Education, Self-Care/Home Management,Soft Tissue Mobilization, Therapeutic Exercises Modalities Biofeedback,Electric Stimulation Next Visit Focus/Plan Next Note Type Treatment Note Next Visit Plan Continue with EMG biofeedback and NMES next visit, review happy baby stretch
--- NOTE | 2022-10-09 17:53 | PT.OTN ---
Current Diagnoses Low back pain, unspecified (10/09/22) Other specified disorders of muscle (10/09/22) Stress incontinence (female) (male) (10/09/22) Physical Therapy Treatment Note PT-OP-A Visit Information Start: 08/12/22 12:13 Freq: Status: Active Protocol: Document 10/09/22 10:34 [facility] (Rec: 10/09/22 11:24 [facility] [id number]) Out-Patient Physical Therapy Visit Information Visit Information Visit Type Treatment Note Visit Start Time 10:35 Visit Stop Time 11:15 Total Visit Minutes 40 Visit Number 5 PT-OP-B Current Condition Start: 08/12/22 12:13 Freq: Status: Active Protocol: Document 08/12/22 14:30 [facility] (Rec: 08/12/22 15:04 [facility] [id number]) Current Condition History of Current Condition Onset Date following her and delivery 3 years ago Current Complaints pelvic floor weakness, coccyx pain and pain across the lower back and SI History of Current Condition History of vaginal delivery 3 years and she began having tailbone pain afterwards and it never went away. SHe did have strain counter strain and fascial relase and this did hep some. Pain is not constant but more if she is in a seated position or sitting in a soft space. She is hypermoblie and has had more issues with her SI. Her pain is sharp and intense and then goes away. SHe doesn't feel like she has as much contral as she used to . Treatment Goals Patient/Caregiver Goals pts goals are to include core strength and stability of the pelvic floor, reduce pain in the tailbone region and low back Prior Functional Status Baseline Function- ADL's Independent Baseline Function- Mobility Independent Baseline Function- Other prior to and delivery pt noted no c/o pain or pelvic floor weakness Current Functional Impairments (Reported) Functional Limitations- Recreation/ tailbone pain can limit Hobbies activities Functional Limitations- Other pt experiences urinary leakage with cough or sneeze PT-OP-C Subjective Start: 08/12/22 12:13 Freq: Status: Active Protocol: Document 10/09/22 10:34 [facility] (Rec: 10/09/22 11:24 [facility] [id number]) OP-PT Subjective Patient Comments Patient Comments in general she is better but she still has flare up that are tied to digestion and she will go a few days without a bowel movement She has been stretching her hip flexors and feels this really helps PT-OP-F Manual Assessment Start: 08/12/22 12:13 Freq: Status: Active Protocol: Document 08/12/22 14:30 [facility] (Rec: 08/13/22 13:44 [facility] [id number]) Manual Assessments Soft Tissue Assessment Soft Tissue Mobility Assessment tightness of the lumbar parapsinals and pelvis is held in a anterior pelvic tilt hamstring tightness bilaterally left side quad and hip flexor tightness, with prone knee flexion pt has a increase in lumbar extension with prone quad stretch and experiences increase LBP Joint Mobility Assessment Joint Mobility Assessment + ASLR test on the left for SI instability PT-OP-I Pelvic Floor Start: 08/13/22 13:44 Freq: Status: Active Protocol: Document 08/12/22 14:30 [facility] (Rec: 08/13/22 13:47 [facility] [id number]) Pelvic Floor Assessment Urine Pelvic Floor Surgery No Urinary Symptoms Urge Sensation Leakage Size Small Leakage Cause Cough,Exercise,Urge Pelvic Clock Pelvic Clock 12-3 Atrophy Pelvic Clock 3-6 Guarding,Tenderness Pelvic Clock 6-9 Guarding,Tenderness Pelvic Clock 9-12 Guarding,Tenderness Contraction Ability Voluntary Contraction Moderate Voluntary Relaxation Moderate Manual Muscle Testing Left 3 Manual Muscle Testing Right 3 Manual Muscle Testing Anterior 3 Manual Muscle Testing Posterior 3 Muscle Endurance (Seconds) 4 Comments Pelvic Floor Comments Durga is in a guarded state with her pelvic floor muscles, she has difficulty zane as well as relaxing her pelvic floor due to her pelvic floor muscles being guarded and in spasm PT-OP-J Posture/Palpation/Skin Start: 08/12/22 12:13 Freq: Status: Active Protocol: Document 08/12/22 14:30 [facility] (Rec: 08/13/22 13:44 [facility] [id number]) Posture Evaluation Comments Posture Comments pt stands in a anterior pelvic tilt with shortening of the lumbar paraspinal muscles PT-OP-K Range of Motion Start: 08/12/22 12:13 Freq: Status: Active Protocol: Document 08/12/22 14:30 [facility] (Rec: 08/13/22 13:49 [facility] [id number]) Lumbar Spine Range of Motion Lumbar Spine Active Testing Position quadruped Flexion 40 ROM Limitations Soft Tissue Tightness,Pain Comments pt has very limited lumbar flexion as her spine is held into extension and her paraspinal muscles are guarded and tight PT-OP-M Strength Start: 08/12/22 12:13 Freq: Status: Active Protocol: Document 08/12/22 14:30 [facility] (Rec: 08/13/22 13:49 [facility] [id number]) Trunk Strength Trunk Manual Muscle Testing Testing Position Supine Flexion 3 Fair Core Stabilization poor TA activation without upper abdominal substitution PT-OP-Q Treatments Start: 08/12/22 12:13 Freq: Status: Active Protocol: Document 10/09/22 10:34 [facility] (Rec: 10/09/22 11:24 [facility] [id number]) Manual Therapy Treatment Soft Tissue Mobilization piriformis B Mobilization Type Myofascial Release Intensity/Depth Moderate Body Position Prone Comments pt was prone over the body pillow for piriformis release B Neuro Re-Education Treatment Other Activities NMES for the pelvic floor Reps/Duration 10 min Comments pt felt it at level 5 and mainly on the left side at first PT-OP-T Assessment and Plan Start: 08/12/22 12:13 Freq: Status: Active Protocol: Document 10/09/22 10:34 [facility] (Rec: 10/09/22 11:24 [facility] [id number]) Physical Therapy Assessment Assessment Summary Assessment Durga is still presenting with a great deal of tightness in the posterior gluteals, she does respond well to MFR techniques. Pt was given a handout on positions for intercourse that may not irritate her sacrum and tailbone as much. Physical Therapy Plan Frequency and Duration Frequency of Treatment 2x/Week Duration of treatment (weeks) 12 Plan of Care Start Date 08/12/22 Plan of Care End Date 11/04/22 Therapeutic Interventions Therapeutic Interventions Home Exercise Program, Neuromuscular Re-education, Patient/Caregiver Education, Self-Care/Home Management,Soft Tissue Mobilization, Therapeutic Exercises Modalities Biofeedback,Electric Stimulation Next Visit Focus/Plan Next Note Type Treatment Note Next Visit Plan assess scar tissue from gal bladder surgery next visit and return to EMG biofeedback
--- NOTE | 2023-04-01 11:10 | PT.OPDS ---
Current Diagnoses Low back pain, unspecified (10/09/22) Other specified disorders of muscle (10/09/22) Stress incontinence (female) (male) (10/09/22) Visit Care Team Role Provider Type zA Wagner MD Attending Provider Physician Family Provider Primary Care Provider Referring Provider Specialty: Internal Medicine Pediatrics Address: [address] [place] [address], [id number] Email: [email or web address] Visit Number Visit Number 5 Discharge Summary PT-OP-B Current Condition Start: 08/12/22 12:13 Freq: Status: Active Protocol: Document 08/12/22 14:30 [facility] (Rec: 08/12/22 15:04 [facility] [id number]) Current Condition History of Current Condition Onset Date following her and delivery 3 years ago Current Complaints pelvic floor weakness, coccyx pain and pain across the lower back and SI History of Current Condition History of vaginal delivery 3 years and she began having tailbone pain afterwards and it never went away. SHe did have strain counter strain and fascial relase and this did hep some. Pain is not constant but more if she is in a seated position or sitting in a soft space. She is hypermoblie and has had more issues with her SI. Her pain is sharp and intense and then goes away. SHe doesn't feel like she has as much contral as she used to . Treatment Goals Patient/Caregiver Goals pts goals are to include core strength and stability of the pelvic floor, reduce pain in the tailbone region and low back Prior Functional Status Baseline Function- ADL's Independent Baseline Function- Mobility Independent Baseline Function- Other prior to and delivery pt noted no c/o pain or pelvic floor weakness Current Functional Impairments (Reported) Functional Limitations- Recreation/ tailbone pain can limit Hobbies activities Functional Limitations- Other pt experiences urinary leakage with cough or sneeze PT-OP-C Subjective Start: 08/12/22 12:13 Freq: Status: Active Protocol: Document 10/09/22 10:34 [facility] (Rec: 10/09/22 11:24 [facility] [id number]) OP-PT Subjective Patient Comments Patient Comments in general she is better but she still has flare up that are tied to digestion and she will go a few days without a bowel movement She has been stretching her hip flexors and feels this really helps PT-OP-F Manual Assessment Start: 08/12/22 12:13 Freq: Status: Active Protocol: Document 08/12/22 14:30 [facility] (Rec: 08/13/22 13:44 [facility] [id number]) Manual Assessments Soft Tissue Assessment Soft Tissue Mobility Assessment tightness of the lumbar parapsinals and pelvis is held in a anterior pelvic tilt hamstring tightness bilaterally left side quad and hip flexor tightness, with prone knee flexion pt has a increase in lumbar extension with prone quad stretch and experiences increase LBP Joint Mobility Assessment Joint Mobility Assessment + ASLR test on the left for SI instability PT-OP-I Pelvic Floor Start: 08/13/22 13:44 Freq: Status: Active Protocol: Document 08/12/22 14:30 [facility] (Rec: 08/13/22 13:47 [facility] [id number]) Pelvic Floor Assessment Urine Pelvic Floor Surgery No Urinary Symptoms Urge Sensation Leakage Size Small Leakage Cause Cough,Exercise,Urge Pelvic Clock Pelvic Clock 12-3 Atrophy Pelvic Clock 3-6 Guarding,Tenderness Pelvic Clock 6-9 Guarding,Tenderness Pelvic Clock 9-12 Guarding,Tenderness Contraction Ability Voluntary Contraction Moderate Voluntary Relaxation Moderate Manual Muscle Testing Left 3 Manual Muscle Testing Right 3 Manual Muscle Testing Anterior 3 Manual Muscle Testing Posterior 3 Muscle Endurance (Seconds) 4 Comments Pelvic Floor Comments Durga is in a guarded state with her pelvic floor muscles, she has difficulty zane as well as relaxing her pelvic floor due to her pelvic floor muscles being guarded and in spasm PT-OP-J Posture/Palpation/Skin Start: 08/12/22 12:13 Freq: Status: Active Protocol: Document 08/12/22 14:30 [facility] (Rec: 08/13/22 13:44 [facility] [id number]) Posture Evaluation Comments Posture Comments pt stands in a anterior pelvic tilt with shortening of the lumbar paraspinal muscles PT-OP-K Range of Motion Start: 08/12/22 12:13 Freq: Status: Active Protocol: Document 08/12/22 14:30 [facility] (Rec: 08/13/22 13:49 [facility] [id number]) Lumbar Spine Range of Motion Lumbar Spine Active Testing Position quadruped Flexion 40 ROM Limitations Soft Tissue Tightness,Pain Comments pt has very limited lumbar flexion as her spine is held into extension and her paraspinal muscles are guarded and tight PT-OP-M Strength Start: 08/12/22 12:13 Freq: Status: Active Protocol: Document 08/12/22 14:30 [facility] (Rec: 08/13/22 13:49 [facility] [id number]) Trunk Strength Trunk Manual Muscle Testing Testing Position Supine Flexion 3 Fair Core Stabilization poor TA activation without upper abdominal substitution PT-OP-T Assessment and Plan Start: 08/12/22 12:13 Freq: Status: Active Protocol: Document 04/01/23 11:09 [facility] (Rec: 04/01/23 11:09 [facility] [id number]) Physical Therapy Assessment Assessment Summary Assessment As of her last visit Durga is still presenting with a great deal of tightness in the posterior gluteals, she does respond well to MFR techniques . Pt was given a handout on positions for intercourse that may not irritate her sacrum and tailbone as much. Durga has canceled her remaining visits in PT. She will be discharged at this time Physical Therapy Plan Discharge Physical Therapy Discharge Reasons No Longer Attending PT
== END 2023-04-06 14:17 | disposition home or self-care (01) ==
LOC: PHYS 10:30
PROVIDERS: Family Provider Pediatrics; PCP Pediatrics; Referring Provider Pediatrics; Visit Provider Pediatrics
DX: M54.50 Low back pain, unspecified (principal); M62.89 Other specified disorders of muscle; N39.3 Stress incontinence (female) (male)
CPT/HCPCS: 97110; 97112; 97140; 97161